=== PATIENT | male | born 1980 | race Caucasian/White ===

== ENCOUNTER 2017-03-22 22:46 | Emergency (ER) | payer SELFPAY ==
[~2017-03-22] VITALS: Ht 170.2 cm; Wt 71.0 kg
[~2017-03-22 22:46] MED LIST: LORTA10 PO
[2017-03-22 22:51] VITALS: BP 176/125; PULSE 105; RESP 20; TEMP 98.2; O2SAT 100
[2017-03-22] MEDS ORDERED: LISI20TA3 PO (22:59)
[2017-03-22] MEDS ORDERED: ENALAPRILAT 1.25 MG/ML VIAL IV PUSH ONE (23:00)
--- NOTE | 2017-03-22 23:21 | RADRPT ---
EXAM DATE/TIME: 03/22/2017 23:10 [facility] COMPARISON: No previous studies available for comparison. INDICATIONS : Syncopal episode. Laceration to forehead. RADIATION DOSE: 36.42 CTDIvol (mGy) MEDICAL HISTORY : Hypertension. SURGICAL HISTORY : None. ENCOUNTER: Initial ACUITY: 1 day PAIN SCALE: 10/10 LOCATION: cranial TECHNIQUE: Multiple contiguous axial images were obtained of the head. Using automated exposure control and adj ustment of the mA and/or kV according to patient size, radiation dose was kept as low as reasonably a chievable to obtain optimal diagnostic quality images. DICOM format image data is available electro nically for review and comparison. FINDINGS: CEREBRUM: The ventricles are normal for age. No evidence of midline shift, mass lesion, hemorrhage or acute in farction. No extra-axial fluid collections are seen. POSTERIOR FOSSA: The cerebellum and brainstem are intact. The 4th ventricle is midline. The cerebellopontine angle i s unremarkable. EXTRACRANIAL: The visualized portion of the orbits is intact. SKULL: The calvaria is intact. No evidence of skull fracture. CONCLUSION: No acute intracranial disease. Aakash Gallardo MD on March 22, 2017 at 23:20 Board Certified Radiologist. This report was verified electronically.
--- NOTE | 2017-03-22 23:31 | PD ---
HPI Chief Complaint: Syncope/Near-Syncope Time Seen by Provider: 22:56 Travel History International Travel<30 days: No Contact w/Intl Traveler<30days: No Traveled to known affect area: No History of Present Illness HPI This is a 36-year-old male with history of hypertension, who presents here after having a syncopal episode. The patient states he was arguing with his when he walked in the house and passed out. He stated as he is passing out he reached to grab the counter and pulled a figurine that struck his right side of his scalp. He states he's had this happen before and was told it was because his blood pressure was elevated. He reports pain at the right side of his head. He says his neck is sore. He also reports pain in his right shoulder , scapula, humerus, forearm and wrist. There was no reported seizure activity. The patient has no other complaints at this time. He reports he is prescribed lisinopril however states he is not taking at this time. PFSH Past Medical History Asthma: Yes Diminished Hearing: No Hypertension: Yes Immunizations Current: Yes Tetanus Vaccination: < 5 Years Influenza Vaccination: No Social History Alcohol Use: No Tobacco Use: No Substance Use: No Allergies-Medications (Allergen,Severity, Reaction): Coded Allergies: Keflex (Verified Allergy, Mild, UNKNOWN, 10/22/12) Penicillin (Verified Allergy, Mild, UNKNOWN, 10/22/12) Reported Meds & Prescriptions Reported Meds & Active Scripts Active Lortab (Hydrocodone-Acetaminophen) 5-325 Mg Tab 1 Tab PO Q6H PRN Lisinopril-Hctz 20-25 Mg Tab 1 Tab PO DAILY Reported Lisinopril-Hctz 20-25 Mg Tab 1 Tab PO DAILY Review of Systems Except as stated in HPI: all other systems reviewed are Neg General / Constitutional: No: Fever, Chills Eyes: No: Photophobia HENT: Positive: Headaches, No: Neck Stiffness, Neck Pain (right side where he has a laceration) Cardiovascular: No: Chest Pain or Discomfort, Palpitations Respiratory: No: Cough, Shortness of Breath Gastrointestinal: No: Nausea, Vomiting, Abdominal Pain Genitourinary: No: Incontinence Musculoskeletal: Positive: Pain (right shoulder, scapula, humerus, forearm, wrist.), No: Weakness, Edema Neurologic: Positive: Syncope, Headache (right scalp), No: Weakness, Dizziness , Change in Mentation, Incontinence, Sensory Disturbance ( where he has a laceration) Physical Exam Narrative GENERAL: Well-developed well-nourished male in C-spine backboard immobilization. The patient has a laceration to his right temporoparietal area. SKIN: Focused skin assessment warm/dry. HEAD: Laceration to the right temporoparietal scalp. No skull depression. EYES: Pupils equal and round. No scleral icterus. No injection or drainage. ENT: No nasal bleeding or discharge. Mucous membranes pink and moist. NECK: Trachea midline. Patient in c-collar immobilization. CARDIOVASCULAR: Regular rate and rhythm. No murmur appreciated. RESPIRATORY: No accessory muscle use. Clear to auscultation. Breath sounds equal bilaterally. GASTROINTESTINAL: Abdomen soft, non-tender, nondistended. Hepatic and splenic margins not palpable. MUSCULOSKELETAL: No obvious deformities. The patient reports tenderness to palpation on his right anterior and posterior shoulder. He reports pain at his scapula. There is also pain in his mid humerus level. There is also pain noted in his mid forearm and wrist. There is no obvious bony deformities appreciated. He had normal sensation and palpable radial and ulnar pulses. Cap refill is less than 2 seconds. NEUROLOGICAL: Awake and alert. No obvious cranial nerve deficits. Motor grossly within normal limits. Normal speech. Data Data Last Documented VS Vital Signs Date Time Temp Pulse Resp B/P Pulse Ox O2 Delivery O2 Flow Rate FiO2 03/23/17 01:01 79 18 110/64 99 Room Air 03/22/17 22:[address] Brain W/O Iv Contrast(Rout) (03/22/17 22:57) Ct Cerv Spine W/O Contrast (03/22/17 22:57) Forearm (2vws) (03/22/17 22:57) Humerus (Min 2vws) (03/22/17 22:57) Scapula (03/22/17 22:57) Shoulder, Limited(2vws) (03/22/17 22:57) Wrist, Limited (Ap&Lat) (03/22/17 22:57) Enalaprilat Inj (Vasotec Inj) (03/22/17 23:00) Electrocardiogram (03/22/17 23:00) Complete Blood Count With Diff (03/22/17 23:00) Basic Metabolic Panel (Bmp) (03/22/17 23:00) Lidocai-Epi 1%-1:100,000 Inj (Xylocaine- (03/22/17 23:45) Oxycodone-Acetamin 7.5-325 Mg (Percocet (03/23/17 00:45) Support Splint (03/23/17 00:43) Sling Cradle Arm (03/23/17 ) Labs Laboratory Tests Test 03/22/17 22:47 White Blood Count 11.1 TH/MM3 Red Blood Count 5.39 MIL/MM3 Hemoglobin 15.7 GM/DL Hematocrit 44.7 % Mean Corpuscular Volume 82.9 FL Mean Corpuscular Hemoglobin 29.2 PG Mean Corpuscular Hemoglobin 35.2 % Concent Red Cell Distribution Width 13.7 % Platelet Count 304 TH/MM3 Mean Platelet Volume 6.9 FL Neutrophils (%) (Auto) 64.4 % Lymphocytes (%) (Auto) 21.1 % Monocytes (%) (Auto) 9.8 % Eosinophils (%) (Auto) 4.0 % Basophils (%) (Auto) 0.7 % Neutrophils # (Auto) 7.1 TH/MM3 Lymphocytes # (Auto) 2.3 TH/MM3 Monocytes # (Auto) 1.1 TH/MM3 Eosinophils # (Auto) 0.4 TH/MM3 Basophils # (Auto) 0.1 TH/MM3 CBC Comment DIFF FINAL Differential Comment Sodium Level 139 MEQ/L Potassium Level 3.6 MEQ/L Chloride Level 102 MEQ/L Carbon Dioxide Level 34.2 MEQ/L Anion Gap 3 MEQ/L Blood Urea Nitrogen 10 MG/DL Creatinine 0.98 MG/DL Estimat Glomerular Filtration 87 ML/MIN Rate Random Glucose 64 MG/DL Calcium Level 9.2 MG/DL [facility] Medical Decision Making Medical Screen Exam Complete: Yes Emergency Medical Condition: Yes Differential Diagnosis Vasovagal syncope versus hypertensive episode versus intracranial injury versus right upper extremity injury Narrative Course 36 year old male who status post syncopal episode. The patient had a laceration to his right scalp. The patient had pain in his right shoulder right humerus and right wrist and forearm. There is no fractures dislocated noted CTs brain and cervical spine show no evidence of acute injury. The patient is up-to-date on his tetanus shot. He'll be discharged with a sling and swath. He'll be given a prescription for Lortabs for pain. He is instructed to keep his arm immobilized and remove 2-3 times a day induced small circular motions. He'll have his skye removed in 7-10 days for scalp laceration. He is also instructed to take his blood pressure medication as prescribed. He asked that I refill his blood pressure medication. He takes lisinopril 24 thiazide 25. I have written him for 30 days. Diagnosis Primary Impression: Syncopal episodes Additional Impressions: Hypertension right scalp laceration. Additional Instructions: Remove arm from sling 2-3 times a day and do small circular motions for 2 minutes. If pain persists, follow up with orthopedic doctor. Staple removal in 7-10 days. Med/Other Pt SpecificInfo: Prescription(s) given Scripts Hydrocodone-Acetaminophen (Lortab)5-325 Mg Tab1 Tab PO Q6H PRN (PAIN) #20 TAB Ref 0 Prov:Adolfo Mena MD 03/23/17 Lisinopril-Hctz 20-25 Mg Tab1 Tab PO DAILY #30 TAB Ref 0 Prov:Adolfo Mena MD 03/23/17 Disposition: 01 DISCHARGE HOME Condition: Stable Adolfo Mena MD Mar 22, 2017 23:31
--- NOTE | 2017-03-22 23:35 | RADRPT ---
EXAM DATE/TIME: 03/22/2017 23:10 [facility] COMPARISON: No previous studies available for comparison. INDICATIONS : Syncopal episode. Laceration to forehead. RADIATION DOSE: 20.38 CTDIvol (mGy) MEDICAL HISTORY : Hypertension. SURGICAL HISTORY : None. ENCOUNTER: Initial ACUITY: 1 day PAIN SCALE: 10/10 LOCATION: neck TECHNIQUE: Volumetric scanning of the cervical spine was performed. Multiplanar reconstructions in the sagittal, coronal and oblique axial planes were performed. Using automated exposure control and adjustment o f the mA and/or kV according to patient size, radiation dose was kept as low as reasonably achievable to obtain optimal diagnostic quality images. DICOM format image data is available electronically f or review and comparison. FINDINGS: VERTEBRAE: Normal vertebral body height. ALIGNMENT: No evidence of subluxation. C2-C3: The bony spinal canal is normal in size. No evidence of disc bulge or herniation. The neural forami na are bilaterally patent. C3-C4: The bony spinal canal is normal in size. No evidence of disc bulge or herniation. The neural forami na are bilaterally patent. C4-C5: The bony spinal canal is normal in size. No evidence of disc bulge or herniation. The neural forami na are bilaterally patent. C5-C6: The bony spinal canal is normal in size. No evidence of disc bulge or herniation. The neural forami na are bilaterally patent. C6-C7: The bony spinal canal is normal in size. No evidence of disc bulge or herniation. The neural forami na are bilaterally patent. C7-T1: The bony spinal canal is normal in size. No evidence of disc bulge or herniation. The neural forami na are bilaterally patent. CONCLUSION: 1. No fracture or subluxation. Aakash Gallardo MD on March 22, 2017 at 23:33 Board Certified Radiologist. This report was verified electronically.
[2017-03-22 23:38] LABS: AUTOMATED NEUTROPHIL # 7.1 TH/MM3 (1.8-7.7); BASOPHIL # 0.1 TH/MM3 (0-0.2); BASOPHIL % 0.7 % (0.0-2.0); EOSINOPHIL # 0.4 TH/MM3 (0-0.4); HEMATOCRIT 44.7 % (39.0-51.0); HEMO FLAGS DIFF FINAL; LYMPH % 21.1 % (9.0-44.0); LYMPHOCYTE # 2.3 TH/MM3 (1.0-4.8); MEAN CELL VOLUME 82.9 FL (80.0-100.0); MEAN CORPUSCULAR HEMOGLOBIN 29.2 PG (27.0-34.0); MEAN CORPUSCULAR HGB CONC 35.2 % (32.0-36.0); MONO % 9.8 % (0.0-8.0); NEUT % 64.4 % (16.0-70.0); PLATELET COUNT 304 TH/MM3 (150-450); RED BLOOD COUNT 5.39 MIL/MM3 (4.50-5.90); RED CELL DISTRIBUTION WIDTH 13.7 % (11.6-17.2); WHITE BLOOD COUNT 11.1 TH/MM3 (4.0-11.0)
[2017-03-22] MEDS ORDERED: LIDOCAINE 1%/EPINEPHrine 1:100,000 SOLN 20 ML VIAL INFIL ONE (23:45)
--- NOTE | 2017-03-22 23:48 | RADRPT ---
EXAM DATE/TIME: 03/22/2017 23:26 [facility] COMPARISON: No previous studies available for comparison. INDICATIONS : Entire right arm pain from a fall with twisting action. MEDICAL HISTORY : Hypertension. SURGICAL HISTORY : None. ENCOUNTER: Initial ACUITY: 1 day PAIN SCORE: 8/10 LOCATION: Right entire arm FINDINGS: Two view examination of the right forearm demonstrates no evidence of fracture or dislocation. Bony mineralization is normal. The soft tissue structures are intact. CONCLUSION: No acute fracture. Aakash Gallardo MD on March 22, 2017 at 23:47 Board Certified Radiologist. This report was verified electronically.
[2017-03-22 23:54] LABS: BICARBONATE 34.2 MEQ/L (21.0-32.0)
--- NOTE | 2017-03-22 23:55 | PD ---
Physical Exam Date Seen by Provider: Mar 22, 2017 Time Seen by Provider: 23:53 Narrative Skin: Patient has a 3 cm scalp laceration to the right posterior occiput. No bony step-off. No foreign body. Data Data Last Documented VS Vital Signs Date Time Temp Pulse Resp B/P Pulse Ox O2 Delivery O2 Flow Rate FiO2 03/22/17 22:51 98.2 105 20 176/[address] Brain W/O Iv Contrast(Rout) (03/22/17 22:57) Ct Cerv Spine W/O Contrast (03/22/17 22:57) Forearm (2vws) (03/22/17 22:57) Humerus (Min 2vws) (03/22/17 22:57) Scapula (03/22/17 22:57) Shoulder, Limited(2vws) (03/22/17 22:57) Wrist, Limited (Ap&Lat) (03/22/17 22:57) Enalaprilat Inj (Vasotec Inj) (03/22/17 23:00) Electrocardiogram (03/22/17 23:00) Complete Blood Count With Diff (03/22/17 23:00) Basic Metabolic Panel (Bmp) (03/22/17 23:00) Lidocai-Epi 1%-1:100,000 Inj (Xylocaine- (03/22/17 23:45) Labs Laboratory Tests Test 03/22/17 22:47 White Blood Count 11.1 TH/MM3 Red Blood Count 5.39 MIL/MM3 Hemoglobin 15.7 GM/DL Hematocrit 44.7 % Mean Corpuscular Volume 82.9 FL Mean Corpuscular Hemoglobin 29.2 PG Mean Corpuscular Hemoglobin 35.2 % Concent Red Cell Distribution Width 13.7 % Platelet Count 304 TH/MM3 Mean Platelet Volume 6.9 FL Neutrophils (%) (Auto) 64.4 % Lymphocytes (%) (Auto) 21.1 % Monocytes (%) (Auto) 9.8 % Eosinophils (%) (Auto) 4.0 % Basophils (%) (Auto) 0.7 % Neutrophils # (Auto) 7.1 TH/MM3 Lymphocytes # (Auto) 2.3 TH/MM3 Monocytes # (Auto) 1.1 TH/MM3 Eosinophils # (Auto) 0.4 TH/MM3 Basophils # (Auto) 0.1 TH/MM3 CBC Comment DIFF FINAL Differential Comment MDM Medical Record Reviewed: Yes Supervised Visit with NAYE: Yes Interpretation(s) Last [address] 03/22/172256 Signed Impressions: Service Date/Time: Wednesday, March 22, 2017 23:10 - CONCLUSION: No acute intracranial disease. Aakash Gallardo MD Cervical Spine CT 03/22/172256 Signed Impressions: Service Date/Time: Wednesday, March 22, 2017 23:10 - CONCLUSION: 1. No fracture or subluxation. Aakash Gallardo MD Differential Diagnosis MDM: High Differential diagnoses: Fracture, sprain, strain, dislocation, contusion, neurovascular injury Narrative Course Patient's laceration is closed with skye Procedures Procedure Narrative LACERATION LOCATION: Right posterior occiput LENGTH: 3 cm NUMBER OF STITCHES/SKYE: 4 REPAIR: The area of the laceration was prepped with Betadine and sterilely draped. The laceration was infiltrated with 1% lidocaine with epinephrine. The wound was copiously irrigated and explored without evidence of foreign body , tendon injury or neurovascular injury. The wound was closed using skye. This was a simple single layer repair. A sterile dressing was applied. The patient was advised to keep the dressing clean and dry. Patient tolerated the procedure well. Patient Instructions: General Instructions Additional Instruction: Rest. Elevation. Tylenol and Advil for pain. Daily wound care with soap, water, Neosporin. Sutures out in 7-9 days. Return to the ER if any problems. Condition: Stable José Miguel Wright Mar 22, 2017 23:55
--- NOTE | 2017-03-22 23:56 | RADRPT ---
EXAM DATE/TIME: 03/22/2017 23:20 [facility] COMPARISON: No previous studies available for comparison. INDICATIONS : Entire right arm pain from a fall with twisting action. MEDICAL HISTORY : Hypertension. SURGICAL HISTORY : None. ENCOUNTER: Initial ACUITY: 1 day PAIN SCORE: 8/10 LOCATION: Right arm FINDINGS: Two view examination of the right shoulder demonstrates no evidence of fracture or dislocation. The glenohumeral and acromioclavicular joints are maintained. Bony mineralization is normal. CONCLUSION: No acute fracture. Aakash Gallardo MD on March 22, 2017 at 23:55 Board Certified Radiologist. This report was verified electronically.
--- NOTE | 2017-03-22 23:56 | RADRPT ---
EXAM DATE/TIME: 03/22/2017 23:26 [facility] COMPARISON: No previous studies available for comparison. INDICATIONS : Entire right arm pain from a fall with twisting action. MEDICAL HISTORY : Hypertension. SURGICAL HISTORY : None. ENCOUNTER: Initial ACUITY: 1 day PAIN SCORE: 8/10 LOCATION: Right arm FINDINGS: Two view examination of the right humerus demonstrates no evidence of fracture or dislocation. Bony mineralization is normal. The soft tissue structures are intact. CONCLUSION: No acute fracture. Aakash Gallardo MD on March 22, 2017 at 23:56 Board Certified Radiologist. This report was verified electronically.
--- NOTE | 2017-03-22 23:56 | RADRPT ---
EXAM DATE/TIME: 03/22/2017 23:22 [facility] COMPARISON: No previous studies available for comparison. INDICATIONS : Entire right arm pain from a fall with twisting action. MEDICAL HISTORY : Hypertension. SURGICAL HISTORY : None. ENCOUNTER: Initial ACUITY: 1 day PAIN SCORE: 8/10 LOCATION: Right arm FINDINGS: Two view examination of the right scapula demonstrates no evidence of fracture. The glenohumeral and acromioclavicular joints are maintained. Bony mineralization is normal. CONCLUSION: No acute fracture. Aakash Gallardo MD on March 22, 2017 at 23:55 Board Certified Radiologist. This report was verified electronically.
[2017-03-22 23:57] VITALS: BP 177/117; PULSE 101; RESP 18; O2SAT 100
[2017-03-22 23:57] LABS: POTASSIUM 3.6 MEQ/L (3.5-5.1)
--- NOTE | 2017-03-22 23:57 | RADRPT ---
EXAM DATE/TIME: 03/22/2017 23:29 [facility] COMPARISON: No previous studies available for comparison. INDICATIONS : Entire right arm pain from a fall with twisting action. MEDICAL HISTORY : Hypertension. SURGICAL HISTORY : None. ENCOUNTER: Initial ACUITY: 1 day PAIN SCORE: 8/10 LOCATION: Right arm FINDINGS: Two view examination of the right wrist demonstrates no soft tissue swelling, dislocation, or fractur e. The joint spaces are maintained. Bony mineralization is normal. CONCLUSION: No acute fracture. Aakash Gallardo MD on March 22, 2017 at 23:56 Board Certified Radiologist. This report was verified electronically.
[2017-03-23] MEDS ORDERED: oxyCODONE/ACETAMINOPHEN 7.5 MG/325 MG TAB PO ONE (00:45)
[2017-03-23] MEDS ORDERED: LISI20TA3 PO (00:58)
[2017-03-23] MEDS ORDERED: HYDR-3533 PO (00:58)
[2017-03-23 01:01] VITALS: BP 110/64; PULSE 79; RESP 18; O2SAT 99
--- NOTE | 2017-03-23 14:14 | EKG ---
Date Performed: 03/22/2017 Time Performed: 22:59:34 PTAGE: 36 years EKG: SINUS TACHYCARDIA POSSIBLE LEFT ATRIAL ENLARGEMENT POSSIBLE LEFT VENTRICULAR HYPERTROPHY AB NORMAL ECG NO PREVIOUS TRACING DOCTOR: Diogenes Salazar Interpretating Date/Time 03/23/2017 14:12:01
== END 2017-03-23 02:29 | disposition home or self-care (01) ==
LOC: NEPE 22:46
DX: S01.01XA Laceration without foreign body of scalp, initial encounter (principal); R55 Syncope and collapse; M25.511 Pain in right shoulder; I10 Essential (primary) hypertension; W22.8XXA Striking against or struck by other objects, initial encounter; Y92.009 Unspecified place in unspecified non-institutional (private) residence as the place of occurrence of the external cause
CPT/HCPCS: 12002; 70450; 72125; 73010; 73030; 73060; 73090; 73100; 80048; 85025; 93005; 96374

== ENCOUNTER 2017-03-28 22:02 | Emergency (ER) | payer SELFPAY ==
[~2017-03-28] VITALS: Ht 170.2 cm; Wt 71.0 kg
[~2017-03-28 22:02] MED LIST changes: +HYDR-3533 PO; +LISI20TA3 PO; -LORTA10 PO
[2017-03-28 22:05] VITALS: BP 155/102; PULSE 125; RESP 16; TEMP 98.2; O2SAT 97
[2017-03-28] MEDS ORDERED: HYDR-3535 PO (23:34)
[2017-03-28] MEDS ORDERED: SODIUM CHLOR 0.9% 1000 ML INJ 1,000 ML IV ONE (23:45)
[2017-03-28] MEDS ORDERED: LORazepam 2 MG/ML VIAL IV PUSH ONE (23:45)
--- NOTE | 2017-03-29 00:10 | PD ---
HPI Chief Complaint: Anxiety Time Seen by Provider: 00:01 Travel History International Travel<30 days: No Contact w/Intl Traveler<30days: No Traveled to known affect area: No History of Present Illness HPI 36-year-old white male presents to emergency department requesting evaluation of gait disturbance as well as what he reports as weakness in his right upper or lower leg. Patient also states that he feels that he has a somewhat slurred speech. The patient states that his symptoms started sometime around 5:00 today. He has noted difficulty walking at times as well as having unsteady gait. He denies any trauma today. There was a history of a head injury last week that she required CAT scan and suturing of his scalp. The patient today denies any headache. No visual changes. No difficulty swallowing. He denies any problems processing information. He denies any chest pain, shortness of breath, nausea, vomiting. The patient states that he last used methamphetamine 2 days ago. PFSH Past Medical History Narrative Medical Asthma, hypertension, substance abuse, chronic back pain Asthma: Yes Diminished Hearing: No Hypertension: Yes Musculoskeletal: Yes (CHRONIC BACK PAIN) Immunizations Current: Yes Tetanus Vaccination: < 5 Years Past Surgical History Narrative Surgical Back surgery 2 Social History Alcohol Use: No (DENIES) Tobacco Use: No (DENIES) Substance Use: Yes Allergies-Medications (Allergen,Severity, Reaction): Coded Allergies: Bactrim (Verified Allergy, Mild, Swelling, 03/28/17) Keflex (Verified Allergy, Mild, UNKNOWN, 03/28/17) Penicillin (Verified Allergy, Mild, UNKNOWN, 03/28/17) Reported Meds & Prescriptions Reported Meds & Active Scripts Active Reported Lortab (Hydrocodone-Acetaminophen) 10-325 Mg Tab 1 Tab PO Q6H PRN Lisinopril-Hctz 20-25 Mg Tab 1 Tab PO DAILY Review of Systems Except as stated in HPI: all other systems reviewed are Neg Physical Exam Narrative GENERAL: Well-developed, well-nourished in no apparent distress. Nontoxic appearing. HEAD: Normocephalic, atraumatic. Patient has a well-healed scalp laceration to the right posterior occiput. Diana are removed by the nursing staff. EYES: Pupils equal round and reactive. Extraocular motions intact. No scleral icterus. No injection or drainage. ENT: Nose clear. Throat without erythema, tonsillar hypertrophy or exudate. Uvula midline. Airway patent. NECK: Trachea midline. Supple, nontender, moves head freely. No central bony tenderness or spasm. CARDIOVASCULAR: Regular rate and rhythm without murmurs, gallops, or rubs. RESPIRATORY: Clear to auscultation. Breath sounds equal bilaterally. No wheezes , rales, or rhonchi. GASTROINTESTINAL: Abdomen soft, non-tender, nondistended. No hepato-splenomegaly , or palpable masses. No guarding. EXTREMITIES: No clubbing, cyanosis, or edema. No joint tenderness. BACK: Nontender without deformity. No flank tenderness. NEUROLOGICAL: Awake, alert and oriented x 3 .Cranial nerves grossly intact. Motor and sensory grossly within normal limits. Speech is slightly mumbled. Patient has a normal gait. He is able to heel and toe stand. He has a normal tandem gait. He is able to go forward as well as backwards on tandem gait testing. Patient has negative station and Romberg. He has normal finger to nose. There is no pronator drift. Patient has no deviation of the upper extremities well he is examined. I detect no acute weakness. There is no focal sensory change on his exam. The patient is noted to be using both hands in the examination room in a coordinated fashion without limitation. He is using his cell bone as well as manipulating the TV controls. Data Data Last Documented VS Vital Signs Date Time Temp Pulse Resp B/P Pulse Ox O2 Delivery O2 Flow Rate FiO2 03/28/17 22:05 98.2 125 16 155/102 97 Room Air Orders Complete Blood Count With Diff (03/28/17 23:34) Comprehensive Metabolic Panel (03/28/17 23:34) Iv Access Insert/Monitor (03/28/17 23:34) Ecg Monitoring (03/28/17 23:34) Drug Screen, Random Urine (03/28/17 23:34) Alcohol (Ethanol) (03/28/17 23:34) Electrocardiogram (03/28/17 23:34) Prothrombin Time / Inr (Pt) (03/28/17 23:34) Act Partial Throm Time (Ptt) (03/28/17 23:34) Ct Brain W/O Iv Contrast(Rout) (03/28/17 23:34) Lorazepam Inj (Ativan Inj) (03/28/17 23:45) Sodium Chlor 0.9% 1000 Ml Inj (Ns 1000 M (03/28/17 23:45) Labs Laboratory Tests Test 03/28/17 03/28/17 23:40 23:45 Urine Opiates Screen POS Urine Barbiturates Screen NEG Urine Amphetamines Screen POS Urine Benzodiazepines Screen POS Urine Cocaine Screen NEG Urine Cannabinoids Screen NEG White Blood Count 8.1 TH/MM3 Red Blood Count 5.69 MIL/MM3 Hemoglobin 16.4 GM/DL Hematocrit 46.9 % Mean Corpuscular Volume 82.4 FL Mean Corpuscular Hemoglobin 28.8 PG Mean Corpuscular Hemoglobin 34.9 % Concent Red Cell Distribution Width 13.8 % Platelet Count 351 TH/MM3 Mean Platelet Volume 6.8 FL Neutrophils (%) (Auto) 51.9 % Lymphocytes (%) (Auto) 31.7 % Monocytes (%) (Auto) 12.6 % Eosinophils (%) (Auto) 3.1 % Basophils (%) (Auto) 0.7 % Neutrophils # (Auto) 4.2 TH/MM3 Lymphocytes # (Auto) 2.6 TH/MM3 Monocytes # (Auto) 1.0 TH/MM3 Eosinophils # (Auto) 0.2 TH/MM3 Basophils # (Auto) 0.1 TH/MM3 CBC Comment DIFF FINAL Differential Comment Prothrombin Time 10.9 SEC Prothromb Time International 1.0 RATIO Ratio Activated Partial 28.1 SEC Thromboplast Time Sodium Level 141 MEQ/L Potassium Level 4.0 MEQ/L Chloride Level 104 MEQ/L Carbon Dioxide Level 30.7 MEQ/L Anion Gap 6 MEQ/L Blood Urea Nitrogen 15 MG/DL Creatinine 1.13 MG/DL Estimat Glomerular Filtration 73 ML/MIN Rate Random Glucose 88 MG/DL Calcium Level 9.6 MG/DL Total Bilirubin 0.8 MG/DL Aspartate Amino Transf 17 U/L (AST/SGOT) Alanine Aminotransferase 25 U/L (ALT/SGPT) Alkaline Phosphatase 67 U/L Total Protein 7.7 GM/DL Albumin 3.9 GM/DL Ethyl Alcohol Level LESS THAN 3 MG/DL MDM Medical Decision Making Medical Screen Exam Complete: Yes Emergency Medical Condition: Yes Medical Record Reviewed: Yes Interpretation(s) Laboratory Tests Test 03/28/17 03/28/17 23:40 23:45 Urine Opiates Screen POS Urine Barbiturates Screen NEG Urine Amphetamines Screen POS Urine Benzodiazepines Screen POS Urine Cocaine Screen NEG Urine Cannabinoids Screen NEG White Blood Count 8.1 TH/MM3 Red Blood Count 5.69 MIL/MM3 Hemoglobin 16.4 GM/DL Hematocrit 46.9 % Mean Corpuscular Volume 82.4 FL Mean Corpuscular Hemoglobin 28.8 PG Mean Corpuscular Hemoglobin 34.9 % Concent Red Cell Distribution Width 13.8 % Platelet Count 351 TH/MM3 Mean Platelet Volume 6.8 FL Neutrophils (%) (Auto) 51.9 % Lymphocytes (%) (Auto) 31.7 % Monocytes (%) (Auto) 12.6 % Eosinophils (%) (Auto) 3.1 % Basophils (%) (Auto) 0.7 % Neutrophils # (Auto) 4.2 TH/MM3 Lymphocytes # (Auto) 2.6 TH/MM3 Monocytes # (Auto) 1.0 TH/MM3 Eosinophils # (Auto) 0.2 TH/MM3 Basophils # (Auto) 0.1 TH/MM3 CBC Comment DIFF FINAL Differential Comment Prothrombin Time 10.9 SEC Prothromb Time International 1.0 RATIO Ratio Activated Partial 28.1 SEC Thromboplast Time Sodium Level 141 MEQ/L Potassium Level 4.0 MEQ/L Chloride Level 104 MEQ/L Carbon Dioxide Level 30.7 MEQ/L Anion Gap 6 MEQ/L Blood Urea Nitrogen 15 MG/DL Creatinine 1.13 MG/DL Estimat Glomerular Filtration 73 ML/MIN Rate Random Glucose 88 MG/DL Calcium Level 9.6 MG/DL Total Bilirubin 0.8 MG/DL Aspartate Amino Transf 17 U/L (AST/SGOT) Alanine Aminotransferase 25 U/L (ALT/SGPT) Alkaline Phosphatase 67 U/L Total Protein 7.7 GM/DL Albumin 3.9 GM/DL Ethyl Alcohol Level LESS THAN 3 MG/DL EKG: Sinus tachycardia with a ventricular rate of 112. There is LVH by voltage with strain pattern. No abnormal ST-T wave changes otherwise. No ectopy. No ST elevation. Normal P-R. Normal axis. CT brain: Negative for acute intracranial injury Differential Diagnosis Differential diagnosis: CVA, TIA, electrolyte abnormality, substance abuse, alcohol intoxication, supratentorial etiology, psychiatric, malingering, radiculopathy Narrative Course The patient is placed on a monitor. IV is initiated. EKG, laboratory tests including CAT scan of the brain. This patient has been evaluated by . He agrees with the evaluation today. Both he and I do not see any lateralizing symptoms on his exam. We anticipate discharging the patient if his labs are normal. Patient's CT is unremarkable for any acute injury. Patient's laboratory tests are positive for opiates, benzos and amphetamines. Patient's exam reveals no obvious lateralizing signs. Patient appears to be using extremities equally on both sides. Patient is been seen by Dr. Mendez who agrees that the patient does not need to be admitted today. His workup is unrevealing. Patient is medically stable for discharge. This is weakness, polysubstance abuse Diagnosis Primary Impression: Polysubstance abuse Additional Impression: Weakness Patient Instructions: General Instructions Additional Instructions: Rest. Increase fluids. Follow-up with your medical doctor on Thursday. Avoid alcohol. Avoid illegal substances. Follow-up with [facility] for detox. Do not operate a car or any heavy machinery under the influence of alcohol or drugs. Follow-up with a medical doctor this week. Return to the ER for emergencies Med/Other Pt SpecificInfo: No Change to Meds Disposition: 01 DISCHARGE HOME Condition: Stable José Miguel Wright Mar 29, 2017 00:09
[2017-03-29 00:16] LABS: AMPHETAMINE, URINE POS (NEG); BARBITURATES, URINE NEG (NEG); COCAINE, URINE NEG (NEG)
[2017-03-29 00:18] LABS: AUTOMATED NEUTROPHIL # 4.2 TH/MM3 (1.8-7.7); BASOPHIL # 0.1 TH/MM3 (0-0.2); BASOPHIL % 0.7 % (0.0-2.0); EOSINOPHIL # 0.2 TH/MM3 (0-0.4); EOSINOPHIL % 3.1 % (0.0-4.0); HEMATOCRIT 46.9 % (39.0-51.0); HEMO FLAGS DIFF FINAL; LYMPH % 31.7 % (9.0-44.0); LYMPHOCYTE # 2.6 TH/MM3 (1.0-4.8); MEAN CELL VOLUME 82.4 FL (80.0-100.0); MEAN CORPUSCULAR HEMOGLOBIN 28.8 PG (27.0-34.0); MEAN CORPUSCULAR HGB CONC 34.9 % (32.0-36.0); MONO % 12.6 % (0.0-8.0); NEUT % 51.9 % (16.0-70.0); PLATELET COUNT 351 TH/MM3 (150-450); RED BLOOD COUNT 5.69 MIL/MM3 (4.50-5.90); RED CELL DISTRIBUTION WIDTH 13.8 % (11.6-17.2); WHITE BLOOD COUNT 8.1 TH/MM3 (4.0-11.0)
[2017-03-29 00:21] LABS: APTT (PATIENT) 28.1 SEC (24.3-30.1); PROTHROMBIN TIME - PATIENT 10.9 SEC (9.8-11.6)
[2017-03-29 00:27] LABS: ALT (GPT) 25 U/L (12-78); ANION GAP 6 MEQ/L (5-15); AST (GOT) 17 U/L (15-37); BICARBONATE 30.7 MEQ/L (21.0-32.0); BLOOD UREA NITROGEN 15 MG/DL (7-18); CHLORIDE 104 MEQ/L (98-107); GLOMERULAR FILTRATION RATE 73 ML/MIN (>89); SODIUM (NA) 141 MEQ/L (136-145)
[2017-03-29 00:28] LABS: ALKALINE PHOSPHATASE 67 U/L (45-117); TOTAL BILIRUBIN ADULT 0.8 MG/DL (0.2-1.0)
--- NOTE | 2017-03-29 02:40 | RADRPT ---
EXAM DATE/TIME: 03/29/2017 01:36 [facility] COMPARISON: CT BRAIN W/O CONTRAST, March 22, 2017, 23:10. INDICATIONS : Dizziness after patient states he used meth. RADIATION DOSE: 38.18 CTDIvol (mGy) MEDICAL HISTORY : Hypertension. Substance abuse. SURGICAL HISTORY : None. ENCOUNTER: Initial ACUITY: 1 day PAIN SCALE: 0/10 LOCATION: cranial TECHNIQUE: Multiple contiguous axial images were obtained of the head. Using automated exposure control and adj ustment of the mA and/or kV according to patient size, radiation dose was kept as low as reasonably a chievable to obtain optimal diagnostic quality images. DICOM format image data is available electro nically for review and comparison. FINDINGS: CEREBRUM: The ventricles are normal for age. No evidence of midline shift, mass lesion, hemorrhage or acute in farction. No extra-axial fluid collections are seen. POSTERIOR FOSSA: The cerebellum and brainstem are intact. The 4th ventricle is midline. The cerebellopontine angle i s unremarkable. EXTRACRANIAL: The visualized portion of the orbits is intact. SKULL: The calvaria is intact. No evidence of skull fracture. CONCLUSION: No acute intracranial disease. Aakash Gallardo MD on March 29, 2017 at 2:30 Board Certified Radiologist. This report was verified electronically.
[2017-03-29 06:11] VITALS: BP 131/90; PULSE 90; RESP 18; O2SAT 100
--- NOTE | 2017-03-29 13:36 | EKG ---
Date Performed: 03/28/2017 Time Performed: 23:46:22 PTAGE: 36 years EKG: SINUS TACHYCARDIA ABNORMAL RHYTHM ECG PREVIOUS TRACING : 03/22/2017 22.59 Compared to prior tracing no significant change DOCTOR: Aaron Brenner Interpretating Date/Time 03/29/2017 13:35:12
== END 2017-03-29 06:12 | disposition home or self-care (01) ==
LOC: NEPD 22:02
DX: F19.10 Other psychoactive substance abuse, uncomplicated (principal); R53.1 Weakness; Z88.0 Allergy status to penicillin; I10 Essential (primary) hypertension
CPT/HCPCS: 70450; 80053; 80307; 85025; 85610; 85730; 93005; 96361; 96374; 99285; J2060; J7030

== ENCOUNTER 2017-04-25 20:57 | Emergency (ER) | payer MEDICAID, OTHER ==
[~2017-04-25] VITALS: Ht 177.8 cm; Wt 68.0 kg
[~2017-04-25 20:57] MED LIST changes: -HYDR-3533 PO; +HYDR-3535 PO
--- NOTE | 2017-04-25 21:32 | PD ---
HPI . BA/suicidal threats Chief Complaint: Psychiatric Symptoms Time Seen by Provider: 21:29 Travel History International Travel<30 days: No Contact w/Intl Traveler<30days: No Traveled to known affect area: No History of Present Illness HPI 36-year-old male with history of depression, chronic back pain and brain injury in the past here under Salas act due to suicidal threats. Apparently patient got into some type of verbal argument with his and she contacted the police stating patient was suicidal. His reports that his son past 20 years ago at age 6 months from a previous relationship, and he had a box of his belongings under his bed. Apparently his current seem to show no concern for the baby's belongings patient became very upset. He said he decided to leave the house after they got into some argument. He says that he fell and hit his head, however he immediately got up and kept running. At that time, patient's told him she would call the police, and he told her that they would never find him. He believes this is why he was Salas acted. He denies any suicide or homicide. He does report depression, but tells me that he goes to [facility]. He is currently not taking any medications. He reports a long-standing history of back issues and tells me that he has chronic back pain from L1 to S1. He is in the process of applying for disability. He tells me that he has no pains out of sorts his usual pain. Has no other complaints at this time. PFSH Past Medical History Asthma: Yes Diminished Hearing: No Hypertension: Yes Musculoskeletal: Yes (CHRONIC BACK PAIN) Immunizations Current: Yes Social History Alcohol Use: No (DENIES) Tobacco Use: No (DENIES) Substance Use: Yes Allergies-Medications (Allergen,Severity, Reaction): Coded Allergies: Bactrim (Verified Allergy, Mild, Swelling, 03/28/17) Keflex (Verified Allergy, Mild, UNKNOWN, 03/28/17) Penicillin (Verified Allergy, Mild, UNKNOWN, 03/28/17) Reported Meds & Prescriptions Reported Meds & Active Scripts Active Reported Lortab (Hydrocodone-Acetaminophen) 10-325 Mg Tab 1 Tab PO Q6H PRN Lisinopril-Hctz 20-25 Mg Tab 1 Tab PO DAILY Review of Systems General / Constitutional: No: Fever Eyes: No: Visual changes HENT: No: Headaches Cardiovascular: No: Chest Pain or Discomfort Respiratory: No: Shortness of Breath Gastrointestinal: No: Abdominal Pain Genitourinary: No: Dysuria Musculoskeletal: No: Pain Skin: No Rash Neurologic: No: Weakness Psychiatric: Positive: Depression Endocrine: No: Polydipsia Hematologic/Lymphatic: No: Easy Bruising Physical Exam Narrative GENERAL: AAO x 3, no acute distress, Well-nourished, well-developed patient. SKIN: Warm and dry. No visible rashes or bruising. HEAD: Normocephalic and atraumatic.no bruising EYES: No scleral icterus. No injection or drainage. EOM intact, ENT: No nasal drainage noted. Mucous membranes pink. Airway patent. NECK: Supple, trachea midline. No JVD. no c spine process tenderness. CARDIOVASCULAR: Regular rate and rhythm without murmurs, gallops, or rubs. RESPIRATORY: Breath sounds equal bilaterally. No accessory muscle use. No rhonchi or rales. GASTROINTESTINAL: Abdomen soft, non-tender, nondistended. EXTREMITIES: No cyanosis or edema. BACK: No obvious deformity. NEURO: CN II-12 intact, chaplain strength normal b/l, UE and LE 5/5, no focal deficits PSYCH: AAO x 3, anxious Data Data Orders Psych Screen (04/25/17 21:18) Drug Screen, Random Urine (04/25/17 21:18) Alcohol (Ethanol) (04/25/17 21:18) MDM Medical Decision Making Medical Screen Exam Complete: Yes Emergency Medical Condition: Yes Medical Record Reviewed: Yes Differential Diagnosis suicide ideation, depression, drug induced mood disorder Narrative Course 36-year-old male here under Salas act for suicidal threats. Examination was done and there are no gross abnormalities. Patient reports hitting his head, but does not meet imaging criteria per [place] CT rules. There was no loss of consciousness. Patient immediately started running after hitting his head. He was recently here less than a month ago. Patient was medically cleared for psych screen. Case was discussed with my attending Dr. Fang. Alcohol and tox screen ordered. Patient medically cleared for psych screen. Diagnosis Primary Impression: Suicide ideation Condition: Stable Melissa Camacho Apr 25, 2017 21:32
[2017-04-25 21:54] VITALS: BP 121/74; PULSE 120; RESP 16; TEMP 98.4; O2SAT 96
[2017-04-25 23:22] VITALS: BP 115/70; PULSE 114; RESP 18; TEMP 98.6; O2SAT 96
[2017-04-26 02:13] VITALS: BP 98/61; PULSE 94; RESP 18; TEMP 97.9; O2SAT 98
[2017-04-26 05:53] VITALS: BP 94/53; PULSE 91; RESP 18; TEMP 97.2; O2SAT 96
--- NOTE | 2017-04-26 17:25 | PD.PSY.CON ---
Provisional Diagnosis Admission Date Date of consultation 04/26/2017 Mona I. 1. Polysubstance abuse Mona II. Deferred History of Present Illness Service Psychiatry Consult Requested By Emergency department Reason for Consult Salas act Primary Care Physician No Primary Care Physician HPI Mr. Christiansen is a 36-year-old male with a reported history of depression who presents under a Salas act by law enforcement alleging that the patient's mother told officers that he doesn't want to live anymore. Reviewing the electronic medical record, I see no prior psychiatric contact within our system. I do note that the patient has a previous visit for substance use issues, and his urine toxicology presently is positive for opiates, amphetamines , benzodiazepines and cocaine. Patient seen and examined. Chart reviewed. Case discussed with nursing staff. There has been no evidence of any suicidality or homicidality while under fairly extended observation in the J-pod. On my examination today, the patient is clinically sober. He is calm and cooperative with examination. He adamantly denies any suicidal ideation, intent or plan on direct questioning. He says that he has lost a child before and also lost a brother and would never want to inflict that pain on his mother or any other family members. He also wants to live for his children. He maintains that the allegations in the Salas act are false. He says that he has been fighting with his and simply wants to get away; he plans to have a friend in [place] by him a plane ticket to come stay up there. He denies any issues with low mood or elevated mood. He is hopeful about the future. No depressive or hypomanic/manic symptoms noted. Sleep and appetite are good. He denies any audiovisual hallucinations. I can elicit no delusional material. He denies any homicidal ideation. Remainder of the psychiatric ROS is negative. The patient is requesting discharge from the emergency room today. Past psychiatric history: Patient reports a history of depression. He has an upcoming appointment at [facility]. He was reportedly held under the Salas act at a hospital in [facility] but discharged after the 3 days. He denies any history of suicide attempts. He denies any history of violent behavior. Family history: Patient denies any family history of serious mental illness, substance use disorder or suicide. Chemical dependency history: Patient minimizes his substance use. He says that he only occasionally uses some Xanax but provides no explanation for the other substances found in his urine. Social history: The patient lives with his and mother. He has 2 children. He has an 11th grade education. He does framing work. He denies any or legal history. He denies any access to guns or firearms. He is a Hinduism. Review of Systems Except as stated in HPI: all other systems reviewed are Neg Past Family Social History Coded Allergies: Bactrim (Verified Allergy, Mild, Swelling, 03/28/17) Keflex (Verified Allergy, Mild, UNKNOWN, 03/28/17) Penicillin (Verified Allergy, Mild, UNKNOWN, 03/28/17) Past Medical History Reports a recent history of head injury about a month and a half ago. See electronic medical record Reported Medications Hydrocodone-Acetaminophen (Lortab)10-325 Mg Tab1 Tab PO Q6H PRN (PAIN) Ref 0 03/28/17 Lisinopril-Hctz 20-25 Mg Tab1 Tab PO DAILY #30 TAB Ref 0 03/22/17 Patient's Strengths (min. 2) Attending to basic needs. Verbally fluent. Physical Exam Physical exam completed by ED provider. On my examination today, the patient appears to be in no acute physical distress. No motor abnormalities noted. Labs and vitals reviewed: Vital Signs Vital Signs Date Time Temp Pulse Resp B/P Pulse Ox O2 Delivery O2 Flow Rate FiO2 04/26/17 05:53 97.2 91 18 94/53 96 Lab Results Laboratory Tests Test 04/25/17 04/26/17 23:10 14:20 Ethyl Alcohol Level LESS THAN 3 MG/DL Urine Opiates Screen POS Urine Barbiturates Screen NEG Urine Amphetamines Screen POS Urine Benzodiazepines Screen POS Urine Cocaine Screen POS Urine Cannabinoids Screen NEG Mental Status Examination Patient is in hospital gown. Patient is well groomed and maintaining basic hygiene. Patient is awake and alert and oriented to person and hospital at least. No evidence of delirium. No motor abnormalities appreciated. Speech is within normal limits for rate, tone, volume. Language and fund of knowledge average. Focus and concentration fairly intact. Memory grossly intact on clinical exam. Mood is fair. Affect is full and reactive. Thought processes linear. No delusions elicited. Denies audiovisual hallucinations and does not appear internally stimulated. Denies suicidal or homicidal ideation, intent, or plan and contracts for safety. Insight and judgment seem fair. Assessment & Plan Problem List: (1) Polysubstance abuse ICD Code: F19.10 Assessment & Plan This is a 36-year-old male with psychiatric history as detailed above who presents under a Salas act. Nurse has obtain collateral from the patient's mother, who had the patient Josue acted, that she didn't even observe the behavior that she alleged. Mother apparently had the patient Josue acted at the behest of patient's , and patient tells me that he and his have been fighting. He denies suicidal or homicidal ideation. There is no evidence of any mental illness as defined under the Salas act. He is attending to his basic needs. Synthesizing this information and based on the available evidence , I judge's clerk the patient does not meet Salas act criteria. I have lifted the Salas act. Patient is declining voluntary psychiatric hospitalization, nor is it clear that there would be any indication for such hospitalization. I have recommended that the patient follow up on an outpatient basis with [facility] as planned. I counseled the patient to abstain from abuse of drugs or alcohol. I counseled the patient regarding warning signs for need to return to the psychiatric emergency room as part of a general safety plan. Patient is psychiatrically clear for discharge from the ED. Thank you very much for this consultation. Request Surrog/Guard Advoc?: No Adriel Mccormick MD Apr 26, 2017 17:25
[2017-04-26 17:35] VITALS: BP 94/53; TEMP 97.2
== END 2017-04-26 18:24 | disposition home or self-care (01) ==
LOC: NEDAMB 20:57 → NEPJ 04-26 18:24
DX: R45.851 Suicidal ideations (principal); I10 Essential (primary) hypertension
CPT/HCPCS: 80307; 99284

== ENCOUNTER 2017-05-22 23:42 | Emergency (ER) | payer MEDICAID, OTHER ==
[2017-05-22 23:43] VITALS: BP 170/106; PULSE 65; RESP 16; TEMP 98.2; O2SAT 95
[2017-05-23 00:45] VITALS: BP 141/89; PULSE 50; RESP 12; O2SAT 99
[2017-05-23 01:00] VITALS: BP 126/83; PULSE 60; RESP 13; O2SAT 100
[2017-05-23] MEDS ORDERED: LISI20TA3 PO (01:11)
--- NOTE | 2017-05-23 01:12 | PD ---
HPI Chief Complaint: Hypertension Time Seen by Provider: 01:03 Travel History International Travel<30 days: No Contact w/Intl Traveler<30days: No Traveled to known affect area: No History of Present Illness HPI 36-year-old male presents to the emergency department by private transportation for medication refill. Patient states he has a history of hypertension and is supposed to take lisinopril 20/HCTZ 25 once daily. Patient states she's been out of his medications for 2 days. Patient states periodically he's had mild headache due to 4/10 intensity blurred vision and some generalized weakness. Patient denies headache at this time and denies any visual disturbance at this time also denies any weakness at this time. Patient states headache is not sudden onset not thunderclap not worst ever. Patient's had no change in his mentation. Patient's had no difficulty with double vision or loss of vision. Patient denies any speech disturbance. Patient denies difficulty swallowing. Patient's had no ataxia of gait. Patient denies any upper or lower extremity numbness tingling or weakness. Patient also denies any chest pain, pleuritic chest pain, palpitations, sweats, shortness of breath, nausea, vomiting, referred neck jaw back shoulder or arm pain and also denies any abdominal pain. Patient states he feels well but he is concerned that he has been out of his blood pressure medication for 2 days. Patient also denies any recent febrile illness respiratory illness fall or injury. [facility] Past Medical History Narrative Medical Asthma hypertension polysubstance abuse chronic back pain; denies tobacco use denies alcohol use: Nursing notes reviewed Asthma: Yes Diminished Hearing: No Hypertension: Yes Musculoskeletal: Yes (CHRONIC BACK PAIN) Immunizations Current: Yes Social History Alcohol Use: No (DENIES) Tobacco Use: No (DENIES) Substance Use: Yes Allergies-Medications (Allergen,Severity, Reaction): Coded Allergies: cephalexin (Unverified Allergy, Mild, UNKNOWN, 05/23/17) penicillin G (Unverified Allergy, Mild, UNKNOWN, 05/23/17) sulfamethoxazole (Unverified Allergy, Mild, Swelling, 05/23/17) trimethoprim (Unverified Allergy, Mild, Swelling, 05/23/17) amoxicillin (Verified Allergy, Unknown, 05/23/17) Reported Meds & Prescriptions Reported Meds & Active Scripts Active Reported Lortab (Hydrocodone-Acetaminophen) 10-325 Mg Tab 1 Tab PO Q6H PRN Lisinopril-Hctz 20-25 Mg Tab 1 Tab PO DAILY Review of Systems Except as stated in HPI: all other systems reviewed are Neg General / Constitutional: No: Fever, Chills Eyes: No: Diploplia, Photophobia HENT: Positive: Headaches (mild none now), No: Lightheadedness, Neck Stiffness , Neck Pain Cardiovascular: No: Chest Pain or Discomfort, Palpitations, Diaphoresis, Syncope Respiratory: No: Cough, Shortness of Breath Gastrointestinal: No: Nausea, Vomiting Genitourinary: No: Flank Pain Musculoskeletal: No: Myalgias, Arthralgias Skin: No Rash Neurologic: No: Weakness, Dizziness, Syncope, Focal Abnormalities, Coordination Problem Psychiatric: No: Anxiety, Suicidal Ideations Endocrine: No: Heat Intolerance, Cold Intolerance Hematologic/Lymphatic: No: Easy Bruising Physical Exam Narrative GENERAL: Well-developed well-nourished male in no acute distress no respiratory distress; GCS 15 SKIN: Warm and dry. HEAD: Atraumatic. Normocephalic. EYES: Pupils equal and round. Extraocular muscles intact. No scleral icterus. No injection or drainage. ENT: No nasal bleeding or discharge. Mucous membranes pink and moist. Airway is patent. NECK: Trachea midline. No JVD. Supple no meningismus no nuchal rigidity. CARDIOVASCULAR: Regular rate and rhythm. RESPIRATORY: No accessory muscle use. Clear to auscultation. Breath sounds equal bilaterally. GASTROINTESTINAL: Abdomen soft, non-tender, nondistended. Hepatic and splenic margins not palpable. MUSCULOSKELETAL: Extremities without clubbing, cyanosis, or edema. No obvious deformities. NEUROLOGICAL: Awake and alert. No obvious cranial nerve deficits. Motor grossly within normal limits. Five out of 5 muscle strength in the arms and legs. No limb ataxia. No pronator drift. Sensory exam grossly intact. Normal speech. PSYCHIATRIC: Appropriate mood and affect; insight and judgment normal. Data Data Last Documented VS Vital Signs Date Time Temp Pulse Resp B/P (MAP) Pulse Ox O2 Delivery O2 Flow Rate FiO2 05/23/17 00:45 50 12 141/89 (106) 99 Room Air 05/22/17 23:43 98.2 Orders Orders Lisinopril (Prinivil) (05/23/17 01:15) Hydrochlorothiazide (Hydrodiuril) (05/23/17 01:15) MDM Medical Decision Making Medical Screen Exam Complete: Yes Emergency Medical Condition: Yes Medical Record Reviewed: Yes Differential Diagnosis Medication refill, uncontrolled hypertension, TIA, arrhythmia Narrative Course Patient reports that he feels well he has been taking his blood pressure medication as prescribed daily however ran out of his prescription 2 days ago and became concerned since he was having some intermittent dizziness and mild headache he did not want to have any issues with his blood pressure complications because of untreated blood pressure and presents now for medication refill. Patient states that this time he feels well and has no complaints. Currently blood pressure is 148/98. Patient given his daily dose of lisinopril 20/HCTZ 25. Patient is stable for outpatient management voicing no concerns or complaints. Patient given refill of his antihypertensive medication. Diagnosis Primary Impression: Hypertension Additional Impression: Medication refill Referrals: Primary Care Physician call for appointment Patient Instructions: General Instructions Additional Instructions: Take blood pressure medication as prescribed Follow-up with your primary care provider Return to the emergency department for any concerns or change in condition Med/Other Pt SpecificInfo: Prescription(s) given Scripts Lisinopril-Hctz (Lisinopril-Hctz) 20-25 Mg Tab 1 TAB PO DAILY for Blood Pressure Management, #30 TAB 0 Refills Prov: Hattie Herr MD 05/23/17 Hattie Herr MD May 23, 2017 01:12
[2017-05-23] MEDS ORDERED: HYDROCHLOROTHIAZIDE 25 MG TAB PO ONE (01:15)
[2017-05-23] MEDS ORDERED: LISINOPRIL 20 MG TAB PO ONE (01:15)
[2017-05-23 01:30] VITALS: BP 118/83; PULSE 58; RESP 12; O2SAT 99
[2017-05-23 01:45] VITALS: BP 112/81; PULSE 56; RESP 12; O2SAT 100
[2017-05-23 02:01] VITALS: BP 145/89
== END 2017-05-23 02:10 | disposition home or self-care (01) ==
LOC: NEPC 23:42
DX: I10 Essential (primary) hypertension (principal); Z76.0 Encounter for issue of repeat prescription; Z87.09 Personal history of other diseases of the respiratory system; Z87.39 Personal history of other diseases of the musculoskeletal system and connective tissue
CPT/HCPCS: 99283